=== PATIENT | female | born 1960 ===

== ENCOUNTER → 2018-02-06 | Outpatient (CLI) | payer OTHER | END | disposition home or self-care (01) | LOC: CFH 10:03 | PROVIDERS: ATTEND Physician Assistant | DX: E07.9 Disorder of thyroid, unspecified (principal); Z86.39 Personal history of other endocrine, nutritional and metabolic disease | CPT/HCPCS: 76536 ==

== ENCOUNTER 2019-02-09 13:15 | Outpatient (CLI) | payer MEDICARE | END 2019-02-09 23:59 | disposition home or self-care (01) | LOC: CFH 13:15 | PROVIDERS: ATTEND Internal Medicine Cardiovascular Disease | DX: R00.2 Palpitations (principal); F17.200 Nicotine dependence, unspecified, uncomplicated | CPT/HCPCS: 93306 ==